=== PATIENT | female | born 2005 | race Two or more races ===

== ENCOUNTER 2025-02-08 08:03 | Emergency (ER) | payer MEDICAID, SELFPAY ==
--- NOTE | 2025-02-08 08:34 | XR_ITS ---
Examination: Forearm, right, 2 views. Technique: Forearm, AP, lateral 2 views Date and time of exam: February 08, 2025 0848 hours INDICATIONS: Dog bite to the forearm today, forearm pain FINDINGS: Soft tissue defect radial side of the mid forearm Air in the soft tissue medial forearm and dorsum of the forearm No opaque foreign body No fracture On the lateral view the distal ulna is dorsally positioned which may be a function of projection IMPRESSION: No fractures No opaque foreign bodies. Recommend follow-up true lateral view of the wrist as clinically warranted
[2025-02-08 08:43] VITALS: BP 132/73; PULSE 114; RESP 20; TEMP 36.9; O2SAT 97
[2025-02-08] MEDS: DIPHTH,PERTUSS(ACELL),TET VAC 0.5 ML SYR- ADULT IMi (08:53)
[2025-02-08] MEDS: KETOROLAC INJ 30 MG/ML VIAL 15 MG IVP (08:53)
--- NOTE | 2025-02-08 08:53 | PD.EDANIML ---
ED Animal Bite RME/HPI General Chief Complaint: Animal Bite Stated Complaint: Dog bite to right arm Time Seen by Provider: 02/08/25 08:43 Arrival date/time: 02/08/25 08:03 Limitations: no limitations RME / HPI RME / HPI narrative: 20 year old female with no stated medical history presents to the ED for evaluation after dog bite today. Patient reports she was about to pet her brothers dog when he lunged at her right arm and bit her, resulting in multiple puncture wounds and three larger wounds. Accompanied by pain and numbness/tingling sensation (that has since resolved). Denies provoking the dog. No other injuries reported. Related Data Previous Rx's ?Medication ?Instructions ?Recorded acetaminophen 500 mg tablet 1,000 mg (2 x 500 mg) PO Q6H PRN 02/08/25 (Acetaminophen Extra Strength) pain 5 days #30 tabs amoxicillin 875 mg-potassium 1 tab PO BID Dog bite 10 days #20 02/08/25 clavulanate 125 mg tablet tabs hydrocodone 5 mg-acetaminophen 325 1 tab PO Q6H PRN pain #14 tabs 02/08/25 mg tablet hydrocodone 5 mg-acetaminophen 325 1 tab PO Q8H PRN pain #12 tabs 02/08/25 mg tablet ibuprofen 600 mg tablet 600 mg PO Q6H PRN pain 5 days #20 02/08/25 tabs mupirocin 2 % topical ointment 1 applic topical BID Dog bite 02/08/25 wounds #22 grams Allergies Allergy/AdvReac Type Severity Reaction Status Date / Time No Known Drug Allergies Allergy Verified 02/08/25 08:07 Review of Systems Review of Systems Systems Reviewed: All systems reviewed, normal except as documented Past Medical History Past Medical History CARDIAC: Negative Congestive Heart Failure RESPIRATORY: Negative Chronic Obstructive Pulmonary Disease (COPD) GENITOURINARY: Negative Renal Disease ENDOCRINE: Negative Diabetes Mellitus Type 1 or Diabetes Mellitus Type 2 Social History SMOKING STATUS: Never smoker ED Exam Narrative Physical exam: Extremity: Right forearm with numerous small puncture wounds from elbow to wrist. There are three large wounds, lateral posterior forearm just distal to elbow joint open wound measuring 3cm x 2cm with exposed subcutaneous fat, posterior lateral mid forearm that measures 3cm x 2cm with exposed subcutaneous fat and vein that is not bleeding and just distal to that there is a 1.5cm open wound with subcutaneous fat exposed General Limitations: Present no limitations General appearance: Present alert and in no apparent distress Head Head exam: Present atraumatic, normocephalic and normal inspection Eye Eye exam: Present normal appearance, PERRL and EOMI ENT ENT exam: Present normal exam, normal oropharynx and mucous membranes moist Neck Neck exam: Present normal inspection, full ROM and trachea midline Chest Chest inspection: Present normal inspection and symmetric chest wall rise Respiratory Respiratory exam: Present normal lung sounds bilaterally Cardiovascular Cardiovascular exam: Present regular rate, normal rhythm and normal heart sounds Abdominal Exam Abdominal exam: Present soft and normal bowel sounds Extremities Exam Extremities exam: Present other (As noted above ) Back Exam Back exam: Present normal inspection and full ROM Neurological Exam Neurological exam: Present alert, oriented X3 and CN II-XII intact Psychiatric Psychiatric exam: Present normal affect and normal mood Skin Skin exam: Present warm, dry, intact and normal color Course Quality Measures none Orders Category Date Time Status Miscellaneous Nursing Order NOW Care 02/08/25 08:48 Active Miscellaneous Nursing Order NOW Care 02/08/25 08:49 Active XR forearm RT 2V Stat Exams 02/08/25 08:34 Completed Acetaminophen Ivpb [Ofirmev Inj] Med 02/08/25 08:44 Discontinued 1,000 mg in 100 ml IV NOW Ampicillin/Sulbac Inj [Unasyn Inj] 3 gm Med 02/08/25 08:44 Discontinued Sodium Chloride 0.9% (Pop) [NS 0.9% mini bag] 100 ml IV X1 Ketorolac Inj [Toradol Inj] Med 02/08/25 08:44 Discontinued 15 mg IVP X1 ONE Ondansetron Inj [Zofran Inj] Med 02/08/25 08:47 Discontinued 4 mg IVP X1 ONE TET,DIP/PERT AC (Adult)-Tdap [Boostrix Adult (Tdap) Med 02/08/25 08:44 Discontinued Vacc] 0.5 ml IMI .ONCE ONE fentaNYL INJ [Sublimaze Inj] Med 02/08/25 09:05 Discontinued 25 mcg IV X1 ONE fentaNYL INJ [Sublimaze Inj] Med 02/08/25 08:47 Discontinued 50 mcg IVP X1 ONE fentaNYL INJ [Sublimaze Inj] Med 02/08/25 09:44 Discontinued 50 mcg IVP X1 ONE Vital Signs Vital signs: Vital Signs Temperature 98.5 F 02/08/25 08:43 Pulse Rate 114 H 02/08/25 08:43 Respiratory Rate 20 02/08/25 08:43 Blood Pressure 132/73 H 02/08/25 08:43 Pulse Oximetry (%) 97 02/08/25 08:43 Oxygen Delivery Method Room Air 02/08/25 08:43 Pulse ox is 97% on room air which is adequate. PROCEDURES: Laceration Laceration 1: Site: upper extremity Side (If applicable): right (lateral posterior forearm just distal to elbow joint ) Size (cm): 3 Description: other (3cm x 2cm with exposed subcutaneous fat ) Depth: simple, single layer Local Anesthetic: other anesthetic (Xylocaine ) Amount of anesthesia used (mL): 5 Pre-repair: wound explored and irrigated extensively Skin layer closed with: nylon Suture size (cm): 3-0 Number of sutures: 3 Technique: simple, interrupted (wound was loosely approximated ) Laceration 2: Site: upper extremity Side (If applicable): right Size (cm): 3 Description: other (3cm x 2cm to the posterior lateral mid forearm with subcutaneous fat) Depth: simple, single layer Local Anesthetic: other anesthetic (Xylocaine) Amount of anesthesia used (mL): 5 Pre-repair: wound explored, irrigated extensively and extensive debridement Skin layer closed with: nylon Suture size (cm): 3-0 Number of sutures: 3 Technique: simple, interrupted (wound was loosely approximated, there was a peripheral vein that was not bleeding and ligated with one 5-0 vicryl simple interrupted suture. ) Laceration 3: Site: upper extremity Side (If applicable): right Size (cm): 1 Description: other (distal lateral mid forarm 1.5cm open wound with subcutaneous fat exposed ) Depth: simple, single layer Local Anesthetic: other anesthetic (Xylocaine) Amount of anesthesia used (mL): 5 Pre-repair: wound explored and irrigated extensively Skin layer closed with: nylon Suture size (cm): 3-0 Number of sutures: 1 Animal Bite MDM Narrative MDM Narrative:: Nohemy Castro am scribing for and in the presence of Dr. Schmitz. Patient data External records reviewed:: None (No previous ED visits for review ) Clinical information provided by:: patient Social determinants that could affect healthcare access:: none Patient has the following chronic illnesses:: None How is presenting disease/condition affected by chronic disease/condition?: no chronic disease Evaluation data The following diagnostics were reviewed and interpreted by me:: radiology exam(s) Lab and/or radiology exams considered but not ordered:: None Interpretation Summary: Ordering Physician: David Schmitz MD Date of Service: 02/08/25 Procedure(s): XR forearm RT 2V Accession Number(s): [id number] cc: Chauncey Naik MD; David Schmitz MD~ Examination: Forearm, right, 2 views. Technique: Forearm, AP, lateral 2 views Date and time of exam: February 08, 2025 0848 hours INDICATIONS: Dog bite to the forearm today, forearm pain FINDINGS: Soft tissue defect radial side of the mid forearm Air in the soft tissue medial forearm and dorsum of the forearm No opaque foreign body No fracture On the lateral view the distal ulna is dorsally positioned which may be a function of projection IMPRESSION: No fractures No opaque foreign bodies. Recommend follow-up true lateral view of the wrist as clinically warranted Dictated By: Chauncey Naik MD Signed By: <Electronically signed by Chauncey Naik MD in [place]> 02/08/25 0906 Medications / Prescriptions Medications or Prescriptions considered but not ordered:: None Medication administrations:: Medication Administration History Discontinued Medications Diphtheria/Tetanus/Acell Pertussis (Diphth,Pertuss(Acell),Tet Vac 0.5 Ml Syr- Adult) 0.5 ml IMi .ONCE ONE Stop: 02/08/25 08:45 Last Admin: 02/08/25 08:53 Dose: 0.5 ml Documented By: VG Fentanyl Citrate (Fentanyl Cit Inj 50 Mcg/Ml Amp 2ml) 50 mcg IVP X1 ONE Stop: 02/08/25 08:48 Last Admin: 02/08/25 09:12 Dose: Not Given Documented By: VG Non-Admin Reason: Discontinued Fentanyl Citrate (Fentanyl Cit Inj 50 Mcg/Ml Amp 2ml) 25 mcg IV X1 ONE Stop: 02/08/25 09:06 Last Admin: 02/08/25 09:12 Dose: 25 mcg Documented By: VG Fentanyl Citrate (Fentanyl Cit Inj 50 Mcg/Ml Amp 2ml) 50 mcg IVP X1 ONE Stop: 02/08/25 09:45 Last Admin: 02/08/25 10:02 Dose: 50 mcg Documented By: ARF Acetaminophen (Ofirmev Inj) 1,000 mg in 100 mls @ 250 mls/hr IV NOW ONE Stop: 02/08/25 09:07 Last Infusion: 02/08/25 10:27 Dose: Infused Documented By: Admin: 02/08/25 08:54 Dose: 250 mls/hr Documented By: JENNIFER Ampicillin Sodium/Sulbactam (Sodium 3 gm/ Sodium Chloride) 100 mls @ 200 mls/hr IV X1 ONE Stop: 02/08/25 08:45 Last Infusion: 02/08/25 10:10 Dose: Infused Documented By: Admin: 02/08/25 08:55 Dose: 200 mls/hr Documented By: JENNIFER Ketorolac Tromethamine (Ketorolac Inj 30 Mg/Ml Vial) 15 mg IVP X1 ONE Stop: 02/08/25 08:45 Last Admin: 02/08/25 08:53 Dose: 15 mg Documented By: JENNIFER Ondansetron HCl (Ondansetron Inj 2 Mg/Ml Inj 2 Ml) 4 mg IVP X1 ONE; Protocol Stop: 02/08/25 08:48 Last Admin: 02/08/25 09:11 Dose: 4 mg Documented By: JENNIFER See above Consultations Consultation(s) initiated? (list below): No Diagnosis Most likely diagnosis given after review of the tests above:: Dog bite Admission Indicated Admission indicated?: not indicated Admission Request Was there a request for admission?: No Disposition Plan Disposition Plan: Discharge Discharge Attestation Discharge Attestation: The patient and all family members were given an opportunity to ask questions and understood the discharge instructions. Discharge instructions specifically effects, indications for sooner follow up or return to the emergency department, and the expected course of current diagnosis. Patient condition: Stable Discharge Plan Plan Patient Disposition: HOME (Self Care) Discharge Disposition comment: [place] [facility] [place] Patient condition on transfer: Stable Prescriptions/Referrals Prescriptions/Med Rec: New acetaminophen [Acetaminophen Extra Strength] 500 mg tablet 1,000 mg PO Q6H PRN (Reason: pain) 5 Days Qty: 30 0RF Rx Instructions: Not to be started until 10 PM on 02/08/2025 ibuprofen 600 mg tablet 600 mg PO Q6H PRN (Reason: pain) 5 Days Qty: 20 0RF Rx Instructions: Not to be started until 10 PM on 02/08/2025 amoxicillin-pot clavulanate 875-125 mg tablet 1 tab PO BID 10 Days Qty: 20 0RF hydrocodone-acetaminophen 5-325 mg tablet 1 tab PO Q6H MDD 4 tabs PRN (Reason: pain) Qty: 14 0RF Referrals: [facility] [Provider Group] - In 1 week Problem List Clinical Impression: Dog bite Patient/Caregiver Discharge Instructions Discharge Activity: activity as tolerated Education Materials: ED Dog Bite Additional Instructions: You have multiple dog bites on your right forearm. These wounds are very likely to become infected. I have called in a prescription for an antibiotic called amoxicillin/clavulanate. You should take 1 of these pills twice per day for the entire 10 days. If you notice any spreading redness, extra swelling, drainage of white liquid or pus from the wounds or increasing pain you should come back to the ER as these are signs of infection. I have also written prescriptions for the acetaminophen and the ibuprofen. You can take 2 tabs of the acetaminophen and 1 tab of the ibuprofen at the same time up to every 6 hours for pain. There is also a prescription for a small number of hydrocodone pills. You cannot drive or operate heavy machinery after taking these. If you have any worsening or any further medical problems please come back to the ER. Otherwise you should follow-up with your primary care doctor or in the [facility] Print Language: Kiswahili Stand Alone Forms: [employer] Award Info., Patient Portal Info Letter
[2025-02-08] MEDS: ACETAMINOPHEN IVPB 1,000 MG/100 ML VIAL 250 MG IV (08:54)
[2025-02-08] MEDS: AMPICILLIN/SULBAC INJ 3 GM in SODIUM CHLORIDE 0.9% (POP) 100 ML IV (08:55)
[2025-02-08] MEDS: ONDANSETRON INJ 2 MG/ML INJ 2 ML 4 MG IVP (09:11)
[2025-02-08] MEDS: fentaNYL CIT INJ 50 mCg/ML AMP 2ML 25 MCG IV (09:12)
[2025-02-08] MEDS: fentaNYL CIT INJ 50 mCg/ML AMP 2ML IVP (10:02)
[2025-02-08 10:24] VITALS: BP 125/80; PULSE 76; RESP 18; TEMP 37.1; O2SAT 99
[2025-02-08 11:26] VITALS: BP 124/70; PULSE 76; RESP 18; TEMP 36.9; O2SAT 99
== END 2025-02-08 11:28 | disposition home or self-care (01) ==
PROVIDERS: Emergency Provider Emergency Medicine
DX: S51.851A Open bite of right forearm, initial encounter (principal); Z23 Encounter for immunization; W54.0XXA Bitten by dog, initial encounter
CPT/HCPCS: 12002; 73090; 90471; 90715; 96365; 96366; 96375; 99283; J0131; J0295; J1885; J2405; J3010

== ENCOUNTER 2025-02-18 13:01 | Emergency (ER) | payer MEDICAID, SELFPAY ==
[2025-02-18 13:16] VITALS: BP 104/66; PULSE 76; RESP 18; TEMP 36.8; O2SAT 97
--- NOTE | 2025-02-18 13:22 | PD.EDWOUND ---
ED Wound/Laceration-RME/HPI General Chief Complaint: Wound Recheck / Suture Removal Stated Complaint: Suture removal from dog bite Time Seen by Provider: 02/18/25 13:03 Arrival date/time: 02/18/25 13:01 20-year-old female presents to the emergency department today for suture removal patient had a dog bite to her right arm on last visit Limitations: no limitations Related Data Previous Rx's ?Medication ?Instructions ?Recorded hydrocodone 5 mg-acetaminophen 325 1 tab PO Q6H PRN pain #14 tabs 02/08/25 mg tablet hydrocodone 5 mg-acetaminophen 325 1 tab PO Q8H PRN pain #12 tabs 02/08/25 mg tablet mupirocin 2 % topical ointment 1 applic topical BID Dog bite 02/08/25 wounds #22 grams Allergies Allergy/AdvReac Type Severity Reaction Status Date / Time No Known Drug Allergies Allergy Verified 02/18/25 13:04 Review of Systems Review of Systems Systems Reviewed: All systems reviewed, normal except as documented Constitutional Constitutional: Reports system reviewed and no additional complaints, except as documented, Denies fever(s) and Denies headache(s) Eyes Eyes: Reports system reviewed and no additional complaints, except as documented and Denies blurry vision ENT Ears, Nose, Mouth, and Throat: Reports system reviewed and no additional complaints, except as documented, Denies headache(s), Denies nasal congestion and Denies nasal discharge Cardiovascular Cardiovascular: Reports system reviewed and no additional complaints, except as documented, Denies chest pain and Denies dyspnea Respiratory Respiratory: Reports system reviewed and no additional complaints, except as documented, Denies chest congestion, Denies cough and Denies dyspnea Gastrointestinal Gastrointestinal: Reports system reviewed and no additional complaints, except as documented and Denies abdominal pain Integumentary/Breasts Skin/Breast: Reports system reviewed and no additional complaints, except as documented, Denies rash and Reports wounds (Dog bite right arm) Neurologic Neurologic: Reports system reviewed and no additional complaints, except as documented, Reports as per HPI and Denies headache(s) Past Medical History Past Medical History CARDIAC: Negative Congestive Heart Failure RESPIRATORY: Negative Chronic Obstructive Pulmonary Disease (COPD) GENITOURINARY: Negative Renal Disease ENDOCRINE: Negative Diabetes Mellitus Type 1 or Diabetes Mellitus Type 2 Social History SMOKING STATUS: Never smoker ED Exam General Limitations: Present no limitations General appearance: Present alert and in no apparent distress Head Head exam: Present atraumatic Eye Eye exam: Present normal appearance, PERRL and EOMI; Absent conjunctival injection ENT ENT exam: Present normal exam, normal oropharynx and mucous membranes moist Neck Neck exam: Present normal inspection, full ROM and trachea midline Chest Chest inspection: Present normal inspection and symmetric chest wall rise Respiratory Respiratory exam: Present normal lung sounds bilaterally Cardiovascular Cardiovascular exam: Present regular rate, normal rhythm and normal heart sounds Abdominal Exam Abdominal exam: Present soft and normal bowel sounds Extremities Exam Extremities exam: Present full ROM, tenderness and normal capillary refill; Absent joint swelling Back Exam Back exam: Present normal inspection and full ROM Neurological Exam Neurological exam: Present alert, oriented X3, CN II-XII intact, normal gait and reflexes normal; Absent motor sensory deficit Psychiatric Psychiatric exam: Present normal affect and normal mood Skin Skin exam: Present warm, dry, intact and normal color Course Quality Measures none Vital Signs Vital signs: Vital Signs Temperature 98.3 F 02/18/25 13:16 Pulse Rate 76 02/18/25 13:16 Respiratory Rate 18 02/18/25 13:16 Blood Pressure 104/66 02/18/25 13:16 Pulse Oximetry (%) 97 02/18/25 13:16 Oxygen Delivery Method Room Air 02/18/25 13:16 o2 sat 97% r.a wnl Wound / Laceration MDM Narrative MDM Narrative:: 20-year-old female presents to the emergency department today for suture removal patient had a dog bite to her right arm on last visit On exam patient well-appearing patient does not appear ill or toxic no acute distress Patient has sutures in place to the right forearm no evidence of infection All sutures removed in their entirety Patient discharged home in no distress to follow-up with primary care doctor in the next 24 to 48 hours and for any worsening symptoms to return to the ER immediately Patient data External records reviewed:: [facility] previous records Clinical information provided by:: patient Social determinants that could affect healthcare access:: none Patient has the following chronic illnesses:: none How is presenting disease/condition affected by chronic disease/condition?: no chronic disease Evaluation data The following diagnostics were reviewed and interpreted by me:: other (specify) (N/A) Lab and/or radiology exams considered but not ordered:: N/A Interpretation Summary: Considered not ordered Medications / Prescriptions Medications or Prescriptions considered but not ordered:: Given no meds Medication administrations:: Given no meds Consultations Consultation(s) initiated? (list below): No Diagnosis Wound Differential Diagnosis: laceration, abrasion and avulsion of skin Most likely diagnosis given after review of the tests above:: Dog bite right arm Admission Indicated Admission indicated?: not indicated Admission Request Was there a request for admission?: No Disposition Plan Disposition Plan: Discharge Discharge Attestation Discharge Attestation: The patient and all family members were given an opportunity to ask questions and understood the discharge instructions. Discharge instructions specifically effects, indications for sooner follow up or return to the emergency department, and the expected course of current diagnosis. Patient condition: Stable Discharge Plan Plan Patient Disposition: HOME (Self Care) Discharge Disposition comment: stable Prescriptions/Referrals Prescriptions/Med Rec: No Action hydrocodone-acetaminophen 5-325 mg tablet 1 tab PO Q6H MDD 4 tabs PRN (Reason: pain) Qty: 14 0RF mupirocin 2 % ointment 1 applic topical BID Qty: 22 0RF hydrocodone-acetaminophen 5-325 mg tablet 1 tab PO Q8H MDD 3 PRN (Reason: pain) Qty: 12 0RF Problem List Clinical Impression: Dog bite of right arm Patient/Caregiver Discharge Instructions Education Materials: ED Dog Bite Additional Instructions: Please follow up with your primary care doctor in the next 24-48hrs for any worsening symptoms return here immediately Print Language: Yi Stand Alone Forms: Ashly Award Info., Patient Portal Info Letter PA/TOWBOAT OPERATOR Supervising Physician PA/TOWBOAT OPERATOR Supervising Physician: dr machado
== END 2025-02-18 13:44 | disposition home or self-care (01) ==
PROVIDERS: Emergency Provider Emergency Medicine
DX: S51.811D Laceration without foreign body of right forearm, subsequent encounter (principal); W54.0XXD Bitten by dog, subsequent encounter
CPT/HCPCS: 99282